=== PATIENT | female | born 1955 | race Two or more races ===

== ENCOUNTER → 2018-07-21 | Day surgery (SDC) | payer OTHER ==
[~2018-07-21] MED LIST: IV RINGERS,LACTATED 1000ML 1,000 ML IV SCH; LIDOCAINE 1% PF 2 ML VIAL. ID PRN; MIDAZOLAM HCL/PF 2 MG/2 ML VIAL. IV PRN; PROPOFOL 40 ML IV ONE; fentaNYL PF VIAL 100 MCG/2 ML VIAL IV PRN
--- NOTE | 2018-07-21 10:53 | PDOC1 ---
HISTORY & PHYSICAL H&P Britney Allen [id number] 1955 07/07/2018 03:30 PM 11/03 [place] [facility], [facility] [address] [place] [address] Ph. [phone] Patient: Britney Roldan Date of : 1955 Date: 07/07/2018 3:30 PM Visit Type: Consult This 63 year old female presents for Screening colonoscopy. History of Present Illness: 1. Screening colonoscopy No prior screening. Denies risk factors. Pertinent negatives include abdominal pain, change in bowel habits, change in stool caliber, constipation, decreased appetite, diarrhea, melena, nausea, rectal bleeding, vomiting, weight gain and weight loss. Additional information: No family history of colon cancer , No family history of Crohn's/colitis, No NSAID/ASA use and No colonoscopy in last 20 yrs. INTAKE COMMENTS: Intake Comments: patient states she is here for a colonoscopy PAST MEDICAL/SURGICAL HISTORY (Detailed) Disease/disorder Onset Date Management Date Comments Hysterectomy, total Family History (Detailed) Relationship Family Member Name Age at Condition Onset Age Cause of Mother Hypertension N Social History: (Detailed) The patient is right-handed. Preferred language is Telugu. Tobacco use status: Never smoked tobacco. Smoking status: Never smoker. ALCOHOL There is no history of alcohol use. CAFFEINE The patient uses caffeine: coffee - 3 x a week a day. Medications (active prior to today) Medication Name Sig Description Start Date Stop Date Refilled Rx Elsewhere Vimovo 500 mg-20 mg tablet,immediate and delay release take 1 tablet by oral route 2 times every day 30 minutes before meals 03/06/2018 N Medication Reconciliation Medications reconciled today. Medication Reviewed Adherence Medication Name Sig Desc Elsewhere Status taking as directed Vimovo 500 mg-20 mg tablet,immediate and delay release take 1 tablet by oral route 2 times every day 30 minutes before meals N Verified Medications (Added, Continued or Stopped today) Start Date Medication Directions PRN Status PRN Reason Instruction Stop Date 03/06/2018 Vimovo 500 mg-20 mg tablet,immediate and delay release take 1 tablet by oral route 2 times every day 30 minutes before meals N saples Allergies: Ingredient Reaction (Severity) Medication Name Comment NO KNOWN ALLERGIES ORDERS: Status Lab Order Time Frame Comments ordered CBC -today ordered CMP -today ordered Urinalysis -today ordered TSH -today ordered Hg A1C -today ordered Colonoscopy, flexible; diagnostic -today ordered follow-up visit with Jcarlos Banks MD upon completion of work-up upon completion of work-up System Neg/Pos Details Constitutional Negative Chills, Fever, Malaise, Weight gain and Weight loss. ENMT Negative Sore throat. Eyes Negative Double vision. Respiratory Negative Dyspnea and Wheezing. Cardio Negative Chest pain and Irregular heartbeat/palpitations. GI Positive See HPI. GI Negative Abdominal pain, Change in bowel habits, Change in stool caliber, Constipation, Decreased appetite, Diarrhea, Melena, Nausea, See HPI, Rectal bleeding and Vomiting. Negative Dysuria and Hematuria. Endocrine Negative Cold intolerance and Heat intolerance. Psych Negative Anxiety. Integumentary Negative Hives and Rash. MS Negative Joint pain. Darius/Lymph Negative Easy bleeding and Easy bruising. Allergic/Immuno Negative Food allergies. Vital Signs Time BP mm/Hg Pulse /min Resp /min Temp F Ht ft Ht in Ht cm Wt lb Wt kg BMI kg/ m2 BSA m2 O2 Sat% 3:33 PM 110/68 102 14 97.4 5.0 4.00 162.56 206.40 93.621 35.43 95 Measured By Time Measured by 3:33 PM Casie Swygert PHYSICAL EXAM: Exam Findings Details Constitutional Normal Well developed. Eyes Normal Conjunctiva - Right: Normal, Left: Normal. Sclera - Right: Normal, Left: Normal. Nasopharynx Normal Lips/teeth/gums - Normal. Neck Exam Normal Inspection - Normal. Thyroid gland - Normal. Respiratory Normal Inspection - Normal. Auscultation - Normal. Cardiovascular Normal Regular rate and rhythm. No murmurs, gallops, or rubs. Abdomen Normal Inspection - Normal. Anterior palpation - No guarding. No abdominal tenderness. No hepatic enlargement. No spleen enlargement. No hernia. No Ascites. Skin Normal Inspection - Normal. Extremity Normal No edema. Psychiatric Normal Orientation - Oriented to time, place, person & situation. Appropriate mood and affect. Assessment/Plan # Detail Type Description 1. Assessment Encounter for screening colonoscopy (Z12.11). Patient Plan schedule colonoscopy at Plan Orders Further diagnostic evaluations ordered today include(s) Colonoscopy , flexible; diagnostic to be performed today. She is to schedule a follow-up visit with Jcarlos Banks MD upon completion of work-up. Co-Sign Orders Order Ordering Provider Cosigned Name Cosigned Date Cosigner Comments Colonoscopy, flexible; diagnostic Jcarlos Banks 07/07/2018 follow-up visit with Jcarlos Banks MD upon completion of work-up Jcarlos Banks 07/07/2018 Active Patient Care Team Members Name Contact Agency Type Support Role Relationship Active Date Inactive Date Specialty Pancho Keyes MD Patient provider PCP Internal Med Provider: Jcarlos Banks MD 07/07/2018 4:35 PM Federico Andre MD, [facility]; Antwan Hackett MD Internal Medicine; Pancho Keyes MD, Internal Medicine; Jay Banks MD Internal Medicine; Jcarlos Banks MD, Gastroenterology; Desmond Zambrano MD, Rheumatology, J. Catherine NUÑEZ ------ 07/21/18 Patient seen and examined. No change in H&P. JCARLOS BANKS MD Jul 21, 2018 10:52
[2018-07-21 12:24] VITALS: BP 132/74
== END | disposition home or self-care (01) ==
LOC: SURG 10:20
PROVIDERS: ATTEND Internal Medicine Gastroenterology
DX: Z12.11 Encounter for screening for malignant neoplasm of colon (principal); Z90.710 Acquired absence of both cervix and uterus; Z82.49 Family history of ischemic heart disease and other diseases of the circulatory system; Z79.899 Other long term (current) drug therapy
CPT/HCPCS: 45378; J2704